=== PATIENT | male | born 1935 | race Caucasian/White ===

== ENCOUNTER 2021-09-26 16:04 | Emergency (ER) | payer MEDICARE ==
[~2021-09-26] VITALS: Ht 182.9 cm; Wt 79.4 kg
--- NOTE | 2021-09-26 16:15 | NUR ---
PT BIB [facility] C/O L EYEBROW LAC S/P GROUND LEVEL FALL AT HOME AND HITTING A DRAWER. AAOX4, AMBULATORY, BREATHING EVEN AND UNLABORED, SLIGHT BLEEDING AT LACERATION. PT ON ELIQUIS. HX A FIB. PT ASSISTED TO ER BED 1, ON MONITOR.
--- NOTE | 2021-09-26 16:18 | NUR ---
MARLENA GUEVARA AT BEDSIDE FOR WOUND CLEANING.
[2021-09-26] MEDS ORDERED: TDAP [DIPH/PERTUSSIS/TET] 0.5 ML VIAL IM ONE ×2 (17:30→17:38)
--- NOTE | 2021-09-26 17:55 | NUR ---
PT TAKEN TO CT
--- NOTE | 2021-09-26 18:40 | NUR ---
LAB AT BEDSIDE
[2021-09-26 18:43] LABS: BASOPHILS # (AUTO) 0.2 K/uL (0.0-0.2); BASOPHILS % (AUTO) 1.5 % (0.0-2.0); EOSINOPHILS % (AUTO) 1.1 % (0.0-6.0); HEMATOCRIT 41 % (39-51); HEMOGLOBIN 13.2 g/dL (13.5-17.5); LYMPHOCYTES # (AUTO) 1.3 K/uL (0.8-4.8); LYMPHOCYTES % (AUTO) 11.7 % (20.0-44.0); MEAN CORPUSCULAR HGB CONC 33 g/dl (31.0-36.0); MEAN CORPUSCULAR VOLUME 91 fL (80-96); MONOCYTES # (AUTO) 0.6 K/uL (0.1-1.30); MONOCYTES % (AUTO) 5.2 % (2.0-12.0); NEUTROPHILS % (AUTO) 80.5 % (43.0-81.0); RED BLOOD CELL COUNT(AUTO) 4.45 MIL/uL (4.5-6.0)
[2021-09-26 18:50] LABS: CALCIUM, SERUM 8.5 mg/dL (8.5-10.1); CARBON DIOXIDE 26 mmol/L (21-32); CHLORIDE 105 mmol/L (98-107); CREATININE 1.6 mg/dL (0.6-1.3); GLUCOSE 89 mg/dL (74-106); POTASSIUM 4.8 mmol/L (3.5-5.1); SODIUM SERUM 138 mmol/L (136-145); UREA NITROGEN, BLOOD 19 mg/dL (7-18)
[2021-09-26 19:12] LABS: BAND % (MANUAL) 1 % (0.0-5.0); EOSINOPHILS % (MANUAL) 1 % (0-4); LYMPHOCYTES % (MANUAL) 12 % (16-48); MONOCYTES % (MANUAL) 6 % (0-11.0); NEUTROPHILS % (MANUAL) 80 (42-76)
[2021-09-26 19:14] LABS: PLATELET COUNT (AUTO) 215 K/uL (150-450); WHITE BLOOD COUNT (AUTO) 11.2 K/uL (4.3-11.0)
[2021-09-26 21:38] VITALS: BP 141/85
--- NOTE | 2021-09-26 21:39 | NUR ---
Patient discharged to home in stable condition. Written and verbal after care instructions given. Patient verbalizes understanding of instruction.IV removed. Catheter intact and site benign. Pressure and 4x4 applied to site. No bleeding noted.
== END 2021-09-26 21:39 | disposition home or self-care (01) ==
LOC: ER 16:13
DX: S01.111A Laceration without foreign body of right eyelid and periocular area, initial encounter (principal); N28.9 Disorder of kidney and ureter, unspecified; D64.9 Anemia, unspecified; I48.91 Unspecified atrial fibrillation; I10 Essential (primary) hypertension; F41.9 Anxiety disorder, unspecified; F32.9 Major depressive disorder, single episode, unspecified; E78.5 Hyperlipidemia, unspecified; Z98.890 Other specified postprocedural states; Z60.2 Problems related to living alone; W18.39XA Other fall on same level, initial encounter; Y93.89 Activity, other specified; Y92.89 Other specified places as the place of occurrence of the external cause; Y99.8 Other external cause status
CPT/HCPCS: 12013; 36415; 70450; 70486; 72125; 80048; 85007; 85025; 85730; 90471; 90715; 99284; A6403 ×2

== ENCOUNTER 2021-09-28 10:41 | Emergency (ER) | payer MEDICARE ==
[~2021-09-28] VITALS: Ht 182.9 cm; Wt 79.4 kg
[2021-09-28 11:12] VITALS: BP 131/83
--- NOTE | 2021-09-28 11:15 | NUR ---
BIB FAMILY FOR WOUND CHECK, LAC REPAIR 2 DAYS AGO S/P GLF. DENIES PAIN. WILL CONTINUE TO MONITOR THE PATIENT.
--- NOTE | 2021-09-28 11:29 | NUR ---
Patient discharged to home in stable condition. Written and verbal after care instructions given. Patient verbalizes understanding of instruction.
== END 2021-09-28 11:30 | disposition home or self-care (01) ==
LOC: ER 11:12
DX: S01.81XD Laceration without foreign body of other part of head, subsequent encounter (principal); I10 Essential (primary) hypertension; I48.91 Unspecified atrial fibrillation; Z60.2 Problems related to living alone; X58.XXXD Exposure to other specified factors, subsequent encounter